=== PATIENT | female | born 1975 | race Caucasian/White ===

== ENCOUNTER 2016-12-25 14:12 | Emergency (ER) | payer BC ==
[2016-12-25] MEDS ORDERED: KETOROLAC TROMETHAMINE 60 MG/2 ML VIAL IM ONE ×2 (14:37→14:44)
--- NOTE | 2016-12-25 14:43 | ERNOTE ---
Medical Problem HPI - General Chief Complaint: Insect Bite Time Seen by Provider: 12/25/16 14:14 Source: patient Exam Limitations: no limitations - Immun/Allergies/Home Medications Immunizations: IMMUNIZATION HX Immunizations Up to Date Yes History of Influenza Vaccine No Hx Pneumococcal Vaccination No Allergies/Adverse Reactions: Allergies cortisone [Cortisone] Allergy (Unknown, Verified 10/31/15 10:46) morphine Allergy (Verified 10/31/15 10:46) sumatriptan succinate [From Imitrex STATdose Pen] Allergy (Verified 10/31/15 10: 46) topiramate [From Topamax] Allergy (Verified 10/31/15 10:46) Home Medications: HOME MEDICATIONS Albuterol Sulfate [Albuterol Sulfate Hfa] 8.5 gm IH Q6H PRN 10/02/13 [Last Taken Unknown] Lisdexamfetamine Dimesylate [Vyvanse] 70 mg PO DAILY 10/02/13 [Last Taken Unknown] Cyclobenzaprine HCl [Flexeril] 10 mg PO TID PRN #30 tab 12/25/16 [Last Taken Unknown] HYDROcodone/ACETAMINOPHEN [[place] 5-325] 1 each PO Q4H PRN #12 tablet 12/25/16 [ Last Taken Unknown] Ibuprofen [Motrin] 600 mg PO Q6H PRN #40 tab 12/25/16 [Last Taken Unknown] - History of Present History Narrative: Patient woke up this morning with neck and bilateral shoulder pain (left more than right) She denies any injuries, did not have any symptoms when she went to bed last night, limited motion of her neck, tingling in her left arm. she has not tried any pain medications yet. She denies any history of chronic pain, no prior history of neck pain. A few months ago she was checked for possible lupus due to the rash in her face. Two days ago she felt a sting on her left arm and noticed a bite shay, is wondering whether that could be related Date (Duration): 12/25/16 Time (Timing): 06:45 Timing: constant Modifying Factors - (Worsens): Present: movement Review of Systems - Review of Systems Constitutional: Absent: recent illness, fever EYE: Absent: vision changes ENT: Absent: nose congestion, sore throat, throat swelling Respiratory: Absent: shortness of breath, cough Cardiology: Absent: chest pain Gastrointestinal/Abdominal: Absent: nausea, vomiting, abdominal pain Genitourinary: Present: no symptoms reported Musculoskeletal: Present: neck pain Skin: Absent: rash Neurological: Present: tingling - left arm. Absent: headache - posterior, does not feel like migraines, weakness, numbness - Patient's Past Medical History Patient History - Medical: ADHD, Anxiety, Arthritis, Depression, Fibromyalgia, GERD, Headache, Migraines, UTI'S, Other Patient History - Cardiac/Respiratory: Asthma Patient History - Cancer: No Hx of Cancer Patient History - Surgical Procedures: Colonoscopy, , Hysterectomy, Other Patient History - Other: None - Social History Living Situations: home Abuse History: No History of abuse Psych History: Hx of Anxiety, Hx of Depression Smoking Status: Former smoker Have you smoked in the past 12 months: Yes Do you dip or chew tobacco: No Patient requests Smoking Cessation Consult: No Initiate information on Smoking Cessation: No Alcohol Use: occasionally Drug Use: none - Immunizations Immunizations Up to Date: Yes Hx Pneumococcal Vaccination: No History of Influenza Vaccine: No Physical Exam - Physical Exam General Appearance: Present: wd/wn, alert, no apparent distress, anxious Head Exam: Present: normal inspection, no evidence of injury Neck: Present: normal inspection, other - bilateral posterior muscle tenderness and spasms left >right, decreased range of motion more to left than right Respiratory: Present: no respiratory distress, normal breath sounds, no accessory muscle use, chest nontender, lungs clear Cardiovascular/Chest: Present: regular rate, rhythm, no murmur Extremity Exam: Present: normal inspection, normal range of motion Neurological Exam: Present: alert, oriented, normal mood/affect, no motor/ sensory deficits DTR: N=norm/NB=norm/brisk/A=abs/DD=dull/dimin/HC=hyperactive: Bicep (R): Normal , Bicep (L): Normal Skin Exam: Present: normal color, warm/dry ED Progress - Results and Orders Patient's Lab Results:: I have reviewed the patient's lab results. - Vital Signs Patient's Vital Signs:: I have reviewed the patient's vital signs. Vital Signs: Vital Signs 12/25/16 14:14 Temperature 36.9 C Pulse Rate 78 Respiratory 18 Rate Blood Pressure 140/88 O2 Sat by Pulse 97 Oximetry - X-Ray X-Ray #1 X-Ray: c-spine - no acute findings Interpretation: Reviewed by me - Progress/Reassessment Chief Complaint: Insect Bite Progress Note-Subjective: 12/25/16 15:33 discussed results with patient and family, toradol has not started to work yet Departure - Departure Clinical Impression: Cervical radiculopathy Disposition: Home self-care Condition: Good Instructions: Cervical Radiculopathy, [id number] Additional Instructions: call your doctor for follow up Referrals: Jack Titus MD [Primary Care Provider] - Prescriptions: Cyclobenzaprine HCl [Flexeril] 10 mg PO TID PRN #30 tab PRN Reason: MUSCLE SPASMS HYDROcodone/ACETAMINOPHEN [[place] 5-325] 1 each PO Q4H PRN #12 tablet PRN Reason: Pain Ibuprofen [Motrin] 600 mg PO Q6H PRN #40 tab PRN Reason: Pain
[2016-12-25 15:00] LABS: Hematocrit 39.1 % (37.0-47.0); Hemoglobin 13.2 gm/dL (12.5-16.0); Mean Cell Volume 89.3 fl (78-100); Mean Corpuscular Hemoglobin 30.1 pg (27-31); Mean Corpuscular Hgb Conc 33.8 g/dl (32-36); Mean Platelet Volume 11.8 fl (6.0-9.5); Neutrophil # 6.5 K/mm3 (1.3-6.0); Neutrophil % 74.9 % (42-75.0); Platelet Count 221 K/mm3 (150-450); Red Blood Count 4.38 M/mm3 (4.2-5.4); Red Cell Distribution Width 12.2 % (11.5-14.0); White Blood Count 8.7 K/mm3 (4.0-10.5)
[2016-12-25 15:13] LABS: Albumin * 3.5 gm/dl (3.4-5.0); Anion Gap 10.1 mmol/L (6.8-13.8); BUN/Creatinine Ratio 15.1 (9.0-21.6); Bilirubin, Total 0.4 mg/dL (0.0-1.1); CRP 0.6 mg/dL (0.0-0.9); Ca. Corrected For Albumin 8.5 mg/dL (8.4-10.2); Calcium * 8.4 mg/dL (7.9-10.9); Carbon Dioxide 28.6 mmol/L (24-32.6); Potassium 3.7 mmol/L (3.4-4.6); Total Protein 7.5 gm/dL (6.2-8.2)
[2016-12-25 15:23] VITALS: BP 122/71
[2016-12-25] MEDS ORDERED: CYCLOBENZAPRINE HCL 10 MG TABLET PO ONE (15:32)
[2016-12-25] MEDS ORDERED: CYCLOBENZAPRINE HCL 10 MG TABLET ONE (15:34)
== END 2016-12-25 15:43 | disposition home or self-care (01) ==
LOC: ER 14:12
DX: M54.12 Radiculopathy, cervical region (principal)

== ENCOUNTER 2017-04-16 11:42 | Emergency (ER) | payer BC ==
--- NOTE | 2017-04-16 12:15 | ERNOTE ---
Medical Problem HPI - Narrative Date of Service: 04/16/17 - General Chief Complaint: General Assessment Time Seen by Provider: 04/16/17 12:11 Source: patient - Immun/Allergies/Home Medications Immunizations: IMMUNIZATION HX Immunizations Up to Date Yes History of Influenza Vaccine No Hx Pneumococcal Vaccination No Allergies/Adverse Reactions: Allergies cortisone [Cortisone] Allergy (Unknown, Verified 04/16/17 11:57) morphine Allergy (Verified 04/16/17 11:57) sumatriptan succinate [From Imitrex STATdose Pen] Allergy (Verified 04/16/17 11: 57) topiramate [From Topamax] Allergy (Verified 04/16/17 11:57) Home Medications: HOME MEDICATIONS Albuterol Sulfate [Albuterol Sulfate Hfa] 8.5 gm IH Q6H PRN 10/02/13 [Last Taken Unknown] Lisdexamfetamine Dimesylate [Vyvanse] 70 mg PO DAILY 10/02/13 [Last Taken Unknown] Ibuprofen [Motrin] 600 mg PO Q6H PRN #40 tab 12/25/16 [Last Taken Unknown] Ondansetron [Zofran Odt] 4 mg PO Q8H PRN #20 tab 04/16/17 [Last Taken Unknown] - History of Present History Narrative: for the last 4 days haven't felt well, abd pain that radiates to back, nausea. denies vomiting or diarrhea. denies fever. has anxiety but it has been under control. c/o feeling week. Date (Duration): 04/16/17 Timing: getting worse Review of Systems - Review of Systems Constitutional: Present: no symptoms reported EYE: Present: no symptoms reported ENT: Present: no symptoms reported Respiratory: Present: no symptoms reported Cardiology: Present: no symptoms reported Gastrointestinal/Abdominal: Present: See HPI, nausea Genitourinary: Present: no symptoms reported Musculoskeletal: Present: no symptoms reported Skin: Present: no symptoms reported Neurological: Present: no symptoms reported Endocrine: Present: no symptoms reported Hematologic/Lymphatic: Present: no symptoms reported Psych: Present: no symptoms reported All Other Systems: All systems neg except as marked - Patient's Past Medical History Patient History - Medical: ADHD, Anxiety, Arthritis, Depression, Fibromyalgia, GERD, Headache, Migraines, UTI'S, Other Patient History - Cardiac/Respiratory: Asthma Patient History - Cancer: No Hx of Cancer Patient History - Surgical Procedures: Colonoscopy, , Hysterectomy, Other Patient History - Other: None - Social History Abuse History: No History of abuse Psych History: Hx of Anxiety, Hx of Depression Smoking Status: Current every day smoker Have you smoked in the past 12 months: Yes - Immunizations Immunizations Up to Date: Yes Hx Pneumococcal Vaccination: No History of Influenza Vaccine: No Physical Exam - Physical Exam Narrative: abd soft and pliable. small amt of discomfort to LLQ. General Appearance: Present: wd/wn, alert, no apparent distress Head Exam: Present: normal inspection, no evidence of injury, no tenderness w palpation Ears, Nose, Throat: Present: normal ENT inspection, normal pharynx Neck: Present: normal inspection, nontender Respiratory: Present: no respiratory distress, normal breath sounds, no accessory muscle use, chest nontender, lungs clear Cardiovascular/Chest: Present: regular rate, rhythm, no murmur, normal peripheral pulses Gastrointestinal/Abdominal: Present: normal bowel sounds, nondistended, soft, no organomegaly. Absent: abnormal bowel sounds, distended, rebound, McBurney sign, Obturator sign, Chavez sign, Psoas sign, mass, hernia, hepatomegaly Back Exam: Present: normal inspection, normal range of motion, no CVA tenderness , no vertebral tenderness Extremity Exam: Present: normal inspection, non-tender, normal range of motion, no edema Neurological Exam: Present: alert, oriented, normal mood/affect, no motor/ sensory deficits Skin Exam: Present: normal color, warm/dry Lymphatic Exam: Present: no adenopathy ED Progress - Date and Time Seen: Date and Time: 04/16/17 13:39 patient states that she has been able to eat well over the weekend. she states that she did eat a lot of fried fish and bbq over the weekend. patient states that her pain comes and goes. she is not currently having any pain at this time but does have a small amt of nausea and is tired. patient informed of her lab work and is wanting to follow up with her PCP if she dosnt feel better. ED attending aware of this case and agrees with current treatment plan. patient requesting discharge - Results and Orders Patient's Lab Results:: I have reviewed the patient's lab results. - Vital Signs Patient's Vital Signs:: I have reviewed the patient's vital signs. Vital Signs: Vital Signs 04/16/17 11:54 Temperature 37.3 C Pulse Rate 73 Respiratory 14 Rate Blood Pressure 141/87 O2 Sat by Pulse 97 Oximetry - Progress/Reassessment Chief Complaint: General Assessment Progress:: Improved Plan - Plan Plan: feeling better after PO meds. patient to follow up with PCP. Departure Clinical Impression: Nausea alone - Departure Disposition: Home Follow Up Needed Condition: Stable Instructions: Nausea, Adult Additional Instructions: Continue previous home medications as prescribed. Follow up with her primary care provider in the next 2-3 days. Return to the emergency room if her nausea and vomiting is unable to be controlled with medications. Try to follow a more bland diet for the next few days. Please drink plenty of fluids over the next few days. Referrals: Jack Titus MD [Primary Care Provider] - Prescriptions: Ondansetron [Zofran Odt] 4 mg PO Q8H PRN #20 tab PRN Reason: Nausea And Vomiting
[2017-04-16 12:31] LABS: Hematocrit 39.8 % (37.0-47.0); Hemoglobin 13.4 gm/dL (12.5-16.0); Mean Cell Volume 89.6 fl (78-100); Mean Corpuscular Hemoglobin 30.2 pg (27-31); Mean Corpuscular Hgb Conc 33.7 g/dl (32-36); Mean Platelet Volume 11.8 fl (6.0-9.5); Neutrophil # 4.7 K/mm3 (1.3-6.0); Neutrophil % 72.9 % (42-75.0); Platelet Count 219 K/mm3 (150-450); Red Blood Count 4.44 M/mm3 (4.2-5.4); Red Cell Distribution Width 11.9 % (11.5-14.0); White Blood Count 6.4 K/mm3 (4.0-10.5)
[2017-04-16 12:43] LABS: Urine Bilirubin Negative (NEGATIVE); Urine Blood Negative /ul (NEGATIVE); Urine Ketone 5 mg/dL (NEGATIVE); Urine Nitrite Negative (NEGATIVE); Urine Protein Negative (NEGATIVE); Urine Urobilinogen 4 EU/dl (NORMAL); Urine pH 6.5 pH (5.0-7.0)
[2017-04-16 12:45] LABS: Albumin * 3.7 gm/dl (3.4-5.0); Anion Gap 9.9 mmol/L (6.8-13.8); BUN/Creatinine Ratio 12.7 (9.0-21.6); Bilirubin, Total 0.9 mg/dL (0.0-1.1); Ca. Corrected For Albumin 8.7 mg/dL (8.4-10.2); Calcium * 8.8 mg/dL (7.9-10.9); Carbon Dioxide 29.1 mmol/L (24-32.6); Total Protein 7.7 gm/dL (6.2-8.2)
[2017-04-16] MEDS ORDERED: ONDANSETRON HCL/PF 2 MG/ML VIAL IV ONE (12:53)
[2017-04-16] MEDS ORDERED: NORMAL SALINE 1,000 ML IV ONE (12:53)
[2017-04-16 12:55] LABS: Urine Appearance Clear; Urine Bacteria 1+; Urine Color Dark Yellow; Urine RBC TRACE /hpf (0-5); Urine WBC 0-5 /hpf (0-5)
[2017-04-16] MEDS ORDERED: ONDANSETRON 4 MG TAB.RAPDIS PO ONE (13:11)
[2017-04-16] MEDS ORDERED: DICYCLOMINE HCL 10 MG CAPSULE PO ONE (13:14)
[2017-04-16] MEDS ORDERED: ONDANSETRON HCL 8 MG TABLET ONE (13:15)
[2017-04-16] MEDS ORDERED: ONDANSETRON 4 MG TAB.RAPDIS ONE (13:17)
[2017-04-16] MEDS ORDERED: DICYCLOMINE HCL 20 MG TABLET ONE (13:17)
[2017-04-16 13:22] VITALS: BP 120/79
== END 2017-04-16 13:39 | disposition home or self-care (01) ==
LOC: ER 11:42
DX: R11.0 Nausea (principal); F17.200 Nicotine dependence, unspecified, uncomplicated; Z87.440 Personal history of urinary (tract) infections; J45.909 Unspecified asthma, uncomplicated; F90.9 Attention-deficit hyperactivity disorder, unspecified type